=== PATIENT | male | born 1945 | race African-American/Black ===

== ENCOUNTER 2020-03-14 17:21 | Inpatient (IN) | payer MEDICAID, OTHER ==
[~2020-03-14] VITALS: Ht 165.1 cm; Wt 79.8 kg
[2020-03-14] MEDS ORDERED: SODIUM CHLORIDE 0.9% 1,000 ML IV ONE (18:15)
[2020-03-14 19:06] LABS: HEMATOCRIT. 36.8 % (42.0-52.0); HEMOGLOBIN. 12.1 g/dL (14.0-18.0); MEAN CORPUSCULAR HEMOGLOBIN 26.8 pg (28.0-32.0); MEAN CORPUSCULAR VOLUME 81.6 fL (80.0-94.0); MEAN PLATELET VOLUME 8.2 fl (7.4-10.4); PLATELET 249 x1000/uL (130-400); RED BLOOD CELL COUNT 4.51 mill/uL (4.7-6.1); RED CELL DISTRIBUTION WIDTH 13.6 % (11.6-14.6)
[2020-03-14 19:11] LABS: CHLORIDE 103 mEq/L (98-107)
[2020-03-14 19:16] LABS: ETHANOL BLOOD < 10 mg/dL
[2020-03-14 19:17] LABS: PARTIAL THROMBOPLASTIN TIME 24.3 sec (23.4-31.0)
[2020-03-14 19:26] LABS: PLATELET ESTIMATE NORMAL
[2020-03-15] MEDS ORDERED: ASPIRIN 325MG EC TABLET PO ONE (00:45)
[2020-03-15 03:28] LABS: CLARITY URINE CLEAR (CLEAR); COLOR URINE YELLOW (YELLOW); KETONES URINE 2+ (NEGATIVE); LEUKOCYTE ESTERASE URINE NEGATIVE (NEGATIVE); NITRITE URINE NEGATIVE (NEGATIVE); OCCULT BLOOD URINE NEGATIVE (NEGATIVE); PH URINE 5.5 (4.5-8.0); PROTEIN URINE TRACE (NEGATIVE); SPECIFIC GRAVITY URINE 1.028 (1.005-1.030)
[2020-03-15 03:36] LABS: *AMPHETAMINES SCREEN URINE NEGATIVE (NEGATIVE); *BARBITURATES SCREEN URINE NEGATIVE (NEGATIVE); *BENZODIAZEPINES SCREEN URINE NEGATIVE (NEGATIVE); *COCAINE SCREEN URINE NEGATIVE (NEGATIVE)
[2020-03-15 03:37] LABS: CANNABINOID URINE SCREEN PRESUMTIVE POSITIVE (NEGATIVE); METHADONE URINE SCREEN NEGATIVE (NEGATIVE); OPIATES URINE SCREEN NEGATIVE (NEGATIVE); PHENCYCLIDINE URINE SCREEN NEGATIVE (NEGATIVE)
[2020-03-15] MEDS ORDERED: DIPHENHYDRAMINE 50MG/ML VIAL IV PRN (10:15)
[2020-03-15] MEDS ORDERED: PIPERACILLIN/TAZ 3.375G PREMIX 50 ML IV SCH (10:15)
[2020-03-15] MEDS ORDERED: HYDROCODONE/ACETAMINOPHEN 5/325MG TABLET PO PRN (10:15)
[2020-03-15] MEDS ORDERED: ACETAMINOPHEN 650MG SUPP PR PRN (10:15)
[2020-03-15] MEDS ORDERED: GUAIFENESIN 200MG/10ML SUGAR FREE UDC PO PRN (10:15)
[2020-03-15] MEDS ORDERED: ONDANSETRON HCL 4MG/2ML INJ IV PRN (10:15)
[2020-03-15] MEDS ORDERED: DOCUSATE SODIUM 100MG CAPSULE PO PRN (10:15)
[2020-03-15] MEDS ORDERED: MAGNESIUM/ALUMINUM HYDROXIDE/SIMETHICONE 30ML UDC PO PRN (10:15)
[2020-03-15] MEDS ORDERED: ACETAMINOPHEN 325MG TABLET PO PRN (10:15)
[2020-03-15] MEDS ORDERED: IPRATROPIUM/ALBUTEROL 0.5-3(2.5)MG/3ML NEB NEB PRN (11:00)
[2020-03-15] MEDS ORDERED: NA PHOS,M-B/NA PHOS,DI-BA ENEMA 118ML PR PRN (11:00)
[2020-03-15 12:00] VITALS: BP 117/55
[2020-03-15] MEDS: ENOXAPARIN 40MG/0.4ML SYR SUBCUT SCH (12:46)
[2020-03-15 13:23] VITALS: BP 112/62
[2020-03-15] MEDS: PIPERACILLIN/TAZOBACTAM 3.375 G in DEXT 5% WATER 100 ML IV SCH ×2 (13:51→21:50)
[2020-03-15 15:28] LABS: BASOPHILS % 0.7 % (0.0-2.0); EOSINOPHILS % 0.5 % (0.0-5.0); HEMOGLOBIN. 11.8 g/dL (14.0-18.0); LYMPHOCYTES % 12.6 % (20.0-50.0); MEAN CORPUSCULAR HEMOGLOBIN 26.3 pg (28.0-32.0); MEAN CORPUSCULAR VOLUME 80.6 fL (80.0-94.0); MEAN PLATELET VOLUME 8.4 fl (7.4-10.4); MONOCYTES % 9.2 % (2.0-8.0); PLATELET 235 x1000/uL (130-400); RED BLOOD CELL COUNT 4.47 mill/uL (4.7-6.1); RED CELL DISTRIBUTION WIDTH 13.1 % (11.6-14.6)
[2020-03-15 15:31] LABS: CHLORIDE 105 mEq/L (98-107)
[2020-03-15 15:43] LABS: CREATINE KINASE MB FRACTION 15.8 ng/mL (0.5-3.6)
[2020-03-15 15:52] LABS: CREATINE KINASE 2432 IU/L (39-308)
[2020-03-15 15:59] LABS: HEPATITIS B SURFACE ANTIGEN NEGATIVE
[2020-03-15 16:00] VITALS: BP 119/45
[2020-03-15 16:29] LABS: HEPATITIS A AB IGM NEGATIVE (NEGATIVE)
[2020-03-15 20:00] VITALS: BP 127/59
[2020-03-15] MEDS: FAMOTIDINE 20MG TABLET PO SCH (21:52)
[2020-03-16] VITALS: BP 118/57
[2020-03-16 04:00] VITALS: BP 118/56
[2020-03-16] MEDS: PIPERACILLIN/TAZOBACTAM 3.375 G in DEXT 5% WATER 100 ML IV SCH ×3 (04:47→20:37)
[2020-03-16 07:13] LABS: BASOPHILS % 0.5 % (0.0-2.0); EOSINOPHILS % 0.3 % (0.0-5.0); HEMATOCRIT. 34.7 % (42.0-52.0); HEMOGLOBIN. 11.6 g/dL (14.0-18.0); LYMPHOCYTES % 18.4 % (20.0-50.0); MEAN CORPUSCULAR HEMOGLOBIN 26.8 pg (28.0-32.0); MEAN CORPUSCULAR VOLUME 80.4 fL (80.0-94.0); MEAN PLATELET VOLUME 8.1 fl (7.4-10.4); MONOCYTES % 12.2 % (2.0-8.0); NEUTROPHILS % 68.6 % (40.0-76.0); PLATELET 207 x1000/uL (130-400); RED BLOOD CELL COUNT 4.32 mill/uL (4.7-6.1); RED CELL DISTRIBUTION WIDTH 13.3 % (11.6-14.6)
[2020-03-16 07:18] LABS: CHLORIDE 106 mEq/L (98-107)
[2020-03-16 07:28] LABS: CREATINE KINASE MB FRACTION 9.9 ng/mL (0.5-3.6); LDL CHOLESTEROL 84 mg/dL (5-100)
[2020-03-16 07:29] LABS: HDL CHOLESTEROL 55 mg/dL (40-59); T4 FREE 0.94 ng/dL (0.76-1.46)
[2020-03-16 07:40] LABS: CREATINE KINASE 1397 IU/L (39-308)
[2020-03-16] MEDS: ENOXAPARIN 40MG/0.4ML SYR SUBCUT SCH (09:11)
[2020-03-16 20:00] VITALS: BP 118/60
[2020-03-16] MEDS: LORAZEPAM 0.5MG TABLET PO PRN (20:37)
[2020-03-16] MEDS: FAMOTIDINE 20MG TABLET PO SCH (20:37)
[2020-03-17] VITALS: BP 130/67
[2020-03-17] MEDS: PIPERACILLIN/TAZOBACTAM 3.375 G in DEXT 5% WATER 100 ML IV SCH ×3 (03:23→21:27)
[2020-03-17 04:00] VITALS: BP 110/47
[2020-03-17 07:04] LABS: CHLORIDE 105 mEq/L (98-107)
[2020-03-17 07:44] LABS: HEMATOCRIT. 33.9 % (42.0-52.0); HEMOGLOBIN. 11.2 g/dL (14.0-18.0); LYMPHOCYTES % 17.9 % (20.0-50.0); MEAN CORPUSCULAR HEMOGLOBIN 26.6 pg (28.0-32.0); MEAN PLATELET VOLUME 8.7 fl (7.4-10.4); MONOCYTES % 13.8 % (2.0-8.0); NEUTROPHILS % 66.3 % (40.0-76.0); PLATELET 197 x1000/uL (130-400); RED BLOOD CELL COUNT 4.19 mill/uL (4.7-6.1)
[2020-03-17 08:00] VITALS: BP 124/58
[2020-03-17] MEDS: ENOXAPARIN 40MG/0.4ML SYR SUBCUT SCH (08:20)
[2020-03-17 16:00] VITALS: BP 152/70
[2020-03-17 20:00] VITALS: BP 131/59
[2020-03-17] MEDS: FAMOTIDINE 20MG TABLET PO SCH (21:25)
[2020-03-17] MEDS: LORAZEPAM 0.5MG TABLET PO PRN (21:26)
[2020-03-18 04:00] VITALS: BP 126/65
[2020-03-18] MEDS: PIPERACILLIN/TAZOBACTAM 3.375 G in DEXT 5% WATER 100 ML IV SCH ×3 (07:03→21:37)
[2020-03-18 08:00] VITALS: BP 146/96
[2020-03-18] MEDS: ENOXAPARIN 40MG/0.4ML SYR SUBCUT SCH (08:31)
[2020-03-18] MEDS: LORAZEPAM 0.5MG TABLET PO PRN (08:32)
[2020-03-18 12:00] VITALS: BP 122/86
[2020-03-18 16:00] VITALS: BP 148/61
[2020-03-18 20:00] VITALS: BP 132/71
[2020-03-18] MEDS: FAMOTIDINE 20MG TABLET PO SCH (21:37)
[2020-03-19] VITALS: BP_SYST 151; BP_SYST 152; BP_DIAS 58; BP_DIAS 68
[2020-03-19] MEDS: LORAZEPAM 0.5MG TABLET PO PRN (00:19)
[2020-03-19 04:00] VITALS: BP 144/69
[2020-03-19] MEDS: PIPERACILLIN/TAZOBACTAM 3.375 G in DEXT 5% WATER 100 ML IV SCH ×3 (04:06→20:13)
[2020-03-19 08:00] VITALS: BP 130/61
[2020-03-19] MEDS: ENOXAPARIN 40MG/0.4ML SYR SUBCUT SCH (08:07)
[2020-03-19 12:00] VITALS: BP 108/54
[2020-03-19] MEDS: MEMANTINE HCL 5MG TABLET PO SCH (12:18)
[2020-03-19] MEDS: RISPERIDONE 0.25MG TABLET PO SCH ×2 (14:15→18:49)
[2020-03-19 16:00] VITALS: BP 155/46
[2020-03-19 20:00] VITALS: BP 134/52
[2020-03-19] MEDS: FAMOTIDINE 20MG TABLET PO SCH (20:16)
[2020-03-19 21:52] LABS: VITAMIN B12 SERUM 522 pg/mL (211-911)
[2020-03-20] VITALS: BP 131/65
[2020-03-20 04:00] VITALS: BP 147/52
[2020-03-20] MEDS: PIPERACILLIN/TAZOBACTAM 3.375 G in DEXT 5% WATER 100 ML IV SCH ×2 (04:43→12:33)
[2020-03-20 08:00] VITALS: BP 128/63
[2020-03-20] MEDS: MEMANTINE HCL 5MG TABLET PO SCH (09:16)
[2020-03-20] MEDS: RISPERIDONE 0.25MG TABLET PO SCH ×2 (09:16→17:57)
[2020-03-20] MEDS: ENOXAPARIN 40MG/0.4ML SYR SUBCUT SCH (09:17)
[2020-03-20 20:00] VITALS: BP 144/65
[2020-03-20] MEDS: FAMOTIDINE 20MG TABLET PO SCH (21:18)
[2020-03-21] VITALS: BP 147/68
[2020-03-21 04:00] VITALS: BP 154/58
[2020-03-21 07:07] LABS: HEMOGLOBIN 11.6 g/dL (14.0-18.0); MEAN CORPUSCULAR HEMOGLOBIN 26.9 pg (28.0-32.0); MEAN CORPUSCULAR VOLUME 81.3 fL (80.0-94.0); PLATELET 262 x1000/uL (130-400); RED CELL DISTRIBUTION WIDTH 13.5 % (11.6-14.6)
[2020-03-21 07:57] LABS: CHLORIDE 103 mEq/L (98-107)
[2020-03-21] MEDS: ENOXAPARIN 40MG/0.4ML SYR SUBCUT SCH (09:00)
[2020-03-21] MEDS: RISPERIDONE 0.25MG TABLET PO SCH (09:00)
[2020-03-21] MEDS: MEMANTINE HCL 5MG TABLET PO SCH (09:00)
[2020-03-22] MEDS ORDERED: MEMA5TAB7 MT (11:18)
[2020-03-22] MEDS ORDERED: RISP05 PO (11:18)
== END 2020-03-21 10:46 | disposition left against medical advice (07) | DRG 71 ==
LOC: ER 17:21 → MICUSO 22:06 → EDBEDREQTM 22:07 → EDBEDREQ 22:07 → 5WST 03-15 09:58
PROVIDERS: ADMIT Internal Medicine; ATTEND Internal Medicine
DX: G93.49 Other encephalopathy (principal); R17 Unspecified jaundice; G30.9 Alzheimer's disease, unspecified; D64.9 Anemia, unspecified; R00.1 Bradycardia, unspecified; F12.90 Cannabis use, unspecified, uncomplicated; R74.01 Elevation of levels of liver transaminase levels; Z79.899 Other long term (current) drug therapy; Z20.822 Contact with and (suspected) exposure to COVID-19; W19.XXXA Unspecified fall, initial encounter; Y92.410 Unspecified street and highway as the place of occurrence of the external cause
CPT/HCPCS: 36415; 70551; 71045; 76700; 80053; 80061; 80305; 80320; 81003; 82140; 82550; 82553; 82607; 83880; 84145; 84439; 84443; 84484; 85025; 85027; 86705; 86709; 86803; 87340; 87426; 93005; 93306; 93970; 95816; 97161; 99285; C1893; J1650; J2543; J7030; J7040; J7060; G0480